=== PATIENT | female | born 1980 | race Caucasian/White ===

== ENCOUNTER 2016-04-06 10:51 | Emergency (ER) | payer OTHER ==
[~2016-04-06 10:51] MED LIST: HYDR7.5T32 PO
[2016-04-06 11:50] LABS: BACTERIA, URINE MOD /hpf; BLOOD, URINE MOD (NEG); COMMENT (UR) CULTURE INDICATED; CULTURE IF INDICATED CULTURE INDICATED; GLUCOSE,URINE NEG (NEG); KETONE, URINE NEG (NEG); MUCUS URINE FEW /lpf (OCC); NITRITE,URINE NEG (NEG); SQUAMOUS EPITHELIAL CELL URINE 1 /hpf (0-5); URINE COLOR YELLOW (YELLW/STRAW)
--- NOTE | 2016-04-06 12:12 | PD ---
HPI Travel History International Travel<30 Days: No Contact w/Intl Traveler<30Days: No Known Affected Area: No History of Present Illness HPI This patient is a 35-year-old 1 para 0 EDC is April 12, 2016 present at 39 weeks and 1 day she presents the chief complaint of of brownish discharge and cramping she presents to see if she is in early labor no flower vaginal bleeding pain scale is about a 1-2 the baby is very active no rupture of membranes care with Dr. Romeo course is significant for a history of an elevated one-hour glucose tolerance test however the three-hour GTT was normal her group B strep is negative and she only had one episode where her blood pressure was elevated. History Past Medical History Narrative Medical Patient is allergic to amoxicillin no major medical problems Obstetric History Obstetric History First Past Surgical History Narrative Surgical Bartholin's cyst removed from the vaginal area history of HPV Family History Narrative Family History History of diabetes fibromyalgia pulmonary embolism Social History Alcohol Use: No Tobacco Use: No Substance Abuse: No Allergies-Medications (Allergen,Severity, Reaction): Coded Allergies: Amoxicillin (Unverified Allergy, Unknown, UNSURE OF REACTION A CHILD, 12/30/11) Home Meds Reported Medications Hydrocodone-Acetaminophen (Hydrocodone/Acetaminophen 7.5/650)1 Tab Tab1 Tab PO Q4-6HPRN 12/30/11 Review of Systems Gastrointestinal: Abdominal Pain (crampy lower abdominal pain) Genitourinary: Other (brownish vaginal discharge) Physical Exam Narrative GENERAL: Well-nourished, well-developed patient. Alert oriented 3 and cooperative in no acute distress SKIN: Warm and dry. HEAD: Normocephalic and atraumatic. EYES: No scleral icterus. No injection or drainage. Conjunctiva are pink ENT: No nasal drainage noted. Mucous membranes pink. Airway patent. Mucous membranes are moist NECK: Supple, trachea midline. No JVD. CARDIOVASCULAR: Regular rate and rhythm without murmurs, gallops, or rubs. RESPIRATORY: Breath sounds equal bilaterally. No accessory muscle use. ABDOMEN/GI: Gravid consistent with term gestation mild palpable contractions Gravid to [-] weeks size term Fundal Height: [-] GENITOURINARY: External Genitalia: intact and normal in appearance BUS glands: [-] Cervix: [-] Mid position Dilatation: [-] Closed Effacement: [-] 0 Station: [-] -2 Presentation: [-] Vertex Membranes: [intact Uterine Contractions: [-] Irregular every 4-6 minutes measuring 1-2 on a 10 scale FHT's: Category: [-] 1 Baseline: [-]140 Reactive: [-] + Variability: [-] Moderate Decels: [-] 0 EXTREMITIES: No cyanosis or edema. 2+ reflexes NEUROLOGICAL: Awake and alert. Motor and sensory grossly within normal limits. Five out of 5 muscle strength in all muscle groups. Normal speech. Data Data Vital Signs Reviewed: Yes (blood pressures 129/82 pulse is 87 she is afebrile) Orders Urinalysis - C+S If Indicated (04/06/16 11:34) Urine Culture (04/06/16 11:00) Labs Laboratory Tests Test 04/06/16 11:00 Urine Color YELLOW Urine Turbidity HAZY Urine pH 6.0 Urine Specific [place] 1.016 Urine Protein NEG Urine Glucose (UA) NEG Urine Ketones NEG Urine Occult Blood MOD Urine Nitrite NEG Urine Bilirubin NEG Urine Urobilinogen LESS THAN 2.0 Urine Leukocyte Esterase NEG Urine RBC 1 Urine WBC 3 Urine Squamous Epithelial 1 Cells Urine Bacteria MOD Urine Mucus FEW Microscopic Urinalysis Comment CULTURE INDICATED Date/Time Procedure Status Source Growth 04/06/16 11:00 Urine Culture Received Urine Clean Catch Pending MDM Medical Record Reviewed: No Interpretation(s) 35-year-old at 39 weeks and 1 day [place] versus early latent phase History of an elevated one-hour glucose tolerance test three-hour test is normal GBS is negative Category 1 tracing Plan Patient has been monitored with category 1 tracing Urine with moderate amount of blood states that culture is indicated however patient had a brownish discharge possible bloody show Will have Dr. Romeo's office follow-up the urine culture for possible treatment Diagnosis Diagnosis: Primary Impression: Irregular uterine contractions Additional Impression: with 39 completed weeks gestation Disposition: 01 DISCHARGE HOME Condition: Stable Melanie Castelan MD Apr 06, 2016 12:11
[2016-04-07] MEDS ORDERED: CALNTAB (04:30)
== END 2016-04-06 12:14 | disposition home or self-care (01) ==
LOC: HOBED 10:51
DX: O62.2 Other uterine inertia (principal); N89.8 Other specified noninflammatory disorders of vagina; Z3A.39 39 weeks gestation of pregnancy; R82.90 Unspecified abnormal findings in urine
CPT/HCPCS: 81001; 87086; 99284

== ENCOUNTER 2016-04-07 02:45 | Inpatient (IN) | payer OTHER ==
[~2016-04-07] VITALS: Ht 170.2 cm; Wt 89.8 kg
[2016-04-07] VITALS (201 sets, daily range): BP systolic 85–138; BP diastolic 46–109; PULSE 67–112; RESP 16–20; TEMP 98–98.9
--- NOTE | 2016-04-07 03:50 | PD ---
HPI Travel History International Travel<30 Days: No Contact w/Intl Traveler<30Days: No Known Affected Area: No History of Present Illness HPI This patient is a 35-year-old 1 para 0 EDC is April 12, 2016 present at 39 weeks and 2 day she presents the chief complaint of of brownish discharge and cramping she presents to see if she is in early labor no flower vaginal bleeding pain scale is about a 1-2 the baby is very active no rupture of membranes care with Dr. Romeo course is significant for a history of an elevated one-hour glucose tolerance test however the three-hour GTT was normal her group B strep is negative and she only had one episode where her blood pressure was elevated. History Past Medical History Narrative Medical Patient is allergic to amoxicillin no major medical problems Obstetric History Obstetric History First Past Surgical History Narrative Surgical Bartholin's cyst removed from the vaginal area history of HPV Family History Narrative Family History History of diabetes fibromyalgia pulmonary embolism Social History Alcohol Use: No Tobacco Use: No Substance Abuse: No Allergies-Medications (Allergen,Severity, Reaction): Coded Allergies: Amoxicillin (Unverified Allergy, Unknown, UNSURE OF REACTION A CHILD, 12/30/11) Home Meds Reported Medications Hydrocodone-Acetaminophen (Hydrocodone/Acetaminophen 7.5/650)1 Tab Tab1 Tab PO Q4-6HPRN 12/30/11 Review of Systems Gastrointestinal: Abdominal Pain (contractions) Physical Exam Narrative GENERAL: Well-nourished, well-developed patient. Alert oriented 3 and cooperative in no acute distress SKIN: Warm and dry. HEAD: Normocephalic and atraumatic. EYES: No scleral icterus. No injection or drainage. Conjunctiva are pink ENT: No nasal drainage noted. Mucous membranes pink. Airway patent. Mucous membranes are moist NECK: Supple, trachea midline. No JVD. CARDIOVASCULAR: Regular rate and rhythm without murmurs, gallops, or rubs. RESPIRATORY: Breath sounds equal bilaterally. No accessory muscle use. ABDOMEN/GI: Gravid consistent with term gestation mild palpable contractions Gravid to [-] weeks size term Fundal Height: [-] GENITOURINARY: External Genitalia: intact and normal in appearance BUS glands: [-] Cervix: [-] Mid position Dilatation: [-] 2cm Effacement: [-] 100% Station: [-] -1 Presentation: [-] Vertex Membranes: [intact Uterine Contractions: [-] Irregular every 2-3 minutes FHT's: Category: [-] 1 Baseline: [-]140 Reactive: [-] + Variability: [-] Moderate Decels: [-] 0 EXTREMITIES: No cyanosis or edema. 2+ reflexes NEUROLOGICAL: Awake and alert. Motor and sensory grossly within normal limits. Five out of 5 muscle strength in all muscle groups. Normal speech. Data Data Labs Vitals: BP 127/79 MDM Medical Record Reviewed: Yes Interpretation(s) 35-year-old 1 para 0 at 39 weeks and 2 days Latent phase labor Group B strep is negative Plan Admit External monitoring IV fluid hydration CBC type and screen Notify Dr. Church Anticipate vaginal delivery Pain management Physician Communication Spoke with Dr. Church he is aware of patient's admission and agrees with evaluation and management Melanie Castelan MD Apr 07, 2016 03:50
[2016-04-07] MEDS ORDERED: LACTATED RINGER'S 1000 ML INJ 1,000 ML IV PRN (03:53)
--- NOTE | 2016-04-07 03:53 | HHI.HP ---
History & Physical H&P HPI Travel History International Travel<30 Days: No Contact w/Intl Traveler<30Days: No Known Affected Area: No History of Present Illness HPI This patient is a 35-year-old 1 para 0 EDC is April 12, 2016 present at 39 weeks and 2 day she presents the chief complaint of of brownish discharge and cramping she presents to see if she is in early labor no flower vaginal bleeding pain scale is about a 1-2 the baby is very active no rupture of membranes care with Dr. Romeo course is significant for a history of an elevated one-hour glucose tolerance test however the three-hour GTT was normal her group B strep is negative and she only had one episode where her blood pressure was elevated. History (Limited) History Past Medical History Narrative Medical Patient is allergic to amoxicillin no major medical problems Obstetric History Obstetric History First Past Surgical History Narrative Surgical Bartholin's cyst removed from the vaginal area history of HPV Family History Narrative Family History History of diabetes fibromyalgia pulmonary embolism Social History Alcohol Use: No Tobacco Use: No Substance Abuse: No Allergies-Medications Allergies-Medications (Allergen,Severity, Reaction): Coded Allergies: Amoxicillin (Unverified Allergy, Unknown, UNSURE OF REACTION A CHILD, 12/30/11) Home Meds Reported Medications Hydrocodone-Acetaminophen (Hydrocodone/Acetaminophen 7.5/650)1 Tab Tab1 Tab PO Q4-6HPRN 12/30/11 ROS Review of Systems Gastrointestinal: Abdominal Pain (contractions) Physical Exam Physical Exam Narrative GENERAL: Well-nourished, well-developed patient. Alert oriented 3 and cooperative in no acute distress SKIN: Warm and dry. HEAD: Normocephalic and atraumatic. EYES: No scleral icterus. No injection or drainage. Conjunctiva are pink ENT: No nasal drainage noted. Mucous membranes pink. Airway patent. Mucous membranes are moist NECK: Supple, trachea midline. No JVD. CARDIOVASCULAR: Regular rate and rhythm without murmurs, gallops, or rubs. RESPIRATORY: Breath sounds equal bilaterally. No accessory muscle use. ABDOMEN/GI: Gravid consistent with term gestation mild palpable contractions Gravid to [-] weeks size term Fundal Height: [-] GENITOURINARY: External Genitalia: intact and normal in appearance BUS glands: [-] Cervix: [-] Mid position Dilatation: [-] 2cm Effacement: [-] 100% Station: [-] -1 Presentation: [-] Vertex Membranes: [intact Uterine Contractions: [-] Irregular every 2-3 minutes FHT's: Category: [-] 1 Baseline: [-]140 Reactive: [-] + Variability: [-] Moderate Decels: [-] 0 EXTREMITIES: No cyanosis or edema. 2+ reflexes NEUROLOGICAL: Awake and alert. Motor and sensory grossly within normal limits. Five out of 5 muscle strength in all muscle groups. Normal speech. Data Data Data Labs Vitals: BP 127/79 MDM MDM Medical Record Reviewed: Yes Interpretation(s) 35-year-old 1 para 0 at 39 weeks and 2 days Latent phase labor Group B strep is negative Plan Admit External monitoring IV fluid hydration CBC type and screen Notify Dr. Church Anticipate vaginal delivery Pain management Physician Communication Spoke with Dr. Church he is aware of patient's admission and agrees with evaluation and management Melanie Castelan MD Apr 07, 2016 03:50 Melanie Castelan MD Apr 07, 2016 03:53
[2016-04-07] MEDS ORDERED: LIDOCAINE HCL 1% 50 ML VIAL INFIL PRN (04:00)
[2016-04-07] MEDS ORDERED: OXYTOCIN 30 UNITS-500ML PREMIX 500 ML IV ONE (04:00)
[2016-04-07] MEDS ORDERED: ONDANSETRON HCL 4 MG/2 ML VIAL IV PRN (04:00)
[2016-04-07] MEDS ORDERED: CITRIC ACID-SODIUM CITRATE LIQ 30 ML UDC PO SCH (04:00)
[2016-04-07] MEDS ORDERED: MINERAL OIL 10 ML VIAL TOPICAL PRN (04:00)
[2016-04-07] MEDS ORDERED: LIDOCAINE HCL 1% 50 ML VIAL I-DERMAL PRN (04:00)
[2016-04-07] MEDS ORDERED: SODIUM CHLORID 0.9% 500 ML INJ 500 ML IV PRN (04:00)
[2016-04-07] MEDS ORDERED: SODIUM CHLOR 0.9% 1000 ML INJ 1,000 ML IV PRN (04:13)
[2016-04-07] MEDS ORDERED: CALNTAB (04:30)
[2016-04-07 04:42] LABS: AUTOMATED NEUTROPHIL # 10.5 TH/MM3 (1.8-7.7); BASOPHIL % 0.2 % (0.0-2.0); EOSINOPHIL % 0.3 % (0.0-4.0); HEMO FLAGS DIFF FINAL; LYMPH % 13.3 % (9.0-44.0); LYMPHOCYTE # 1.8 TH/MM3 (1.0-4.8); MEAN CORPUSCULAR HEMOGLOBIN 28.8 PG (27.0-34.0); MEAN CORPUSCULAR HGB CONC 34.3 % (32.0-36.0); MONO % 6.6 % (0.0-8.0); NEUT % 79.6 % (16.0-70.0); PLATELET COUNT 220 TH/MM3 (150-450); RED BLOOD COUNT 4.41 MIL/MM3 (4.00-5.30); RED CELL DISTRIBUTION WIDTH 14.1 % (11.6-17.2); WHITE BLOOD COUNT 13.2 TH/MM3 (4.0-11.0)
[2016-04-07 04:50] LABS: BACTERIA, URINE RARE /hpf; BLOOD, URINE SMALL (NEG); GLUCOSE,URINE NEG (NEG); KETONE, URINE 10 mg/dL (NEG); MUCUS URINE FEW /lpf (OCC); NITRITE,URINE NEG (NEG); PH, URINE 6.5 (5.0-8.5); SQUAMOUS EPITHELIAL CELL URINE <1 /hpf (0-5); URINE COLOR YELLOW (YELLW/STRAW)
[2016-04-07 04:52] LABS: COMMENT (UR) CULT NOT INDICATED; CULTURE IF INDICATED CULT NOT INDICATED
[2016-04-07] MEDS ORDERED: OXYTOCIN 30 UNITS-500ML PREMIX 500 ML IV SCH (09:15)
--- NOTE | 2016-04-07 09:54 | PD.LABORPN ---
Subjective Subjective pt in discomfort from contractions. initially had not wanted epidural. Objective Vital Signs Vital Signs Date Time Temp Pulse Resp B/P Pulse Ox O2 Delivery O2 Flow Rate FiO2 04/07/16 09:20 77 04/07/16 09:10 76 04/07/16 09:05 81 04/07/16 09:00 81 04/07/16 08:55 79 04/07/16 08:50 82 04/07/16 08:45 88 04/07/16 08:40 76 04/07/16 08:35 77 04/07/16 08:33 78 118/55 04/07/16 08:30 96 04/07/16 08:25 89 04/07/16 08:24 16 04/07/16 08:20 77 04/07/16 08:15 76 04/07/16 08:00 98.5 16 04/07/16 07:55 87 04/07/16 07:50 78 04/07/16 07:45 83 04/07/16 07:40 84 04/07/16 07:35 84 04/07/16 07:30 83 04/07/16 07:26 16 04/07/16 07:25 85 109/86 04/07/16 07:25 87 04/07/16 07:20 87 04/07/16 07:15 85 04/07/16 07:00 16 04/07/16 06:55 90 04/07/16 06:50 84 04/07/16 06:45 99 04/07/16 06:05 75 04/07/16 06:00 77 04/07/16 05:55 77 04/07/16 05:50 80 04/07/16 05:40 90 04/07/16 05:35 73 04/07/16 05:30 70 04/07/16 05:25 74 04/07/16 05:20 92 04/07/16 05:15 81 04/07/16 05:10 75 04/07/16 05:05 76 04/07/16 05:00 81 04/07/16 04:55 85 04/07/16 04:50 89 04/07/16 04:45 91 04/07/16 04:40 82 04/07/16 04:35 77 04/07/16 04:30 79 04/07/16 04:25 84 04/07/16 04:20 86 04/07/16 04:15 84 04/07/16 04:10 80 04/07/16 04:05 86 Objective Pelvic Exam: Cervix: 50/-2 Presentation: ceph Membranes: [intact Uterine Contractions: q3-5 FHT's: Category:I Baseline: 140 Reactive: y Variability: mod Decels: [-] Assessment/Plan Problem List: (1) with 39 completed weeks gestation (2) Irregular uterine contractions (3) Abnormal glucose tolerance affecting , antepartum Assessment and Plan 35 yo G1 at 39w2d admitted in latent labor 1) iol- will start pitocin, unable to arom as cervix very posterior and pt highly intolerant of exam, narrow pelvis 2) Abn 1 hr, nl 3 hr 3) fetus cephalic, Cat I Liz Koenig MD Apr 07, 2016 09:54
[2016-04-07] MEDS ORDERED: fentaNYL 2MCG-BUPIV 0.125% INJ 100 ML ONE ×2 (09:59→16:46)
[2016-04-07] MEDS ORDERED: ePHEDrine/NS 25 MG/5 ML SYR ONE (10:01)
[2016-04-07] MEDS: LACTATED RINGER'S 1000 ML INJ 1,000 ML IV SCH ×3 (11:10→18:03)
[2016-04-07] MEDS ORDERED: MEASLES, MUMPS, RUBELLA VACCINE 0.5 ML VIAL SQ ONE (16:00)
[2016-04-07] MEDS ORDERED: DIPHTH/TETANUS/ACEL PERTUSSIS (BOOSTER) 0.5 ML VIAL/PFS IM ONE (16:00)
--- NOTE | 2016-04-07 20:18 | PD.LABORPN ---
Subjective Subjective feeling pressure Objective Vital Signs Vital Signs Date Time Temp Pulse Resp B/P Pulse Ox O2 Delivery O2 Flow Rate FiO2 04/07/16 19:35 89 18 04/07/16 19:30 96 122/75 04/07/16 19:30 92 04/07/16 19:04 98.9 18 04/07/16 19:01 84 124/68 04/07/16 19:00 88 04/07/16 18:39 98.2 18 04/07/16 18:35 93 04/07/16 18:30 86 04/07/16 18:30 87 118/74 04/07/16 18:25 89 04/07/16 18:20 92 04/07/16 18:15 79 04/07/16 18:00 89 04/07/16 18:00 88 104/71 04/07/16 17:55 85 04/07/16 17:50 84 04/07/16 17:45 83 04/07/16 17:40 90 04/07/16 17:35 87 04/07/16 17:30 95 113/73 04/07/16 17:30 83 04/07/16 17:25 95 04/07/16 17:20 77 04/07/16 17:15 79 04/07/16 17:15 18 04/07/16 17:10 88 04/07/16 17:05 82 04/07/16 17:00 83 04/07/16 17:00 82 111/73 04/07/16 16:57 82 106/71 04/07/16 16:55 85 04/07/16 16:50 84 04/07/16 16:45 94 04/07/16 16:40 89 04/07/16 16:35 86 04/07/16 16:30 97 04/07/16 16:30 88 106/61 04/07/16 16:25 90 04/07/16 16:20 93 04/07/16 16:17 100 111/64 04/07/16 16:15 98.6 04/07/16 16:15 78 04/07/16 16:15 18 04/07/16 16:10 78 04/07/16 16:05 87 04/07/16 16:00 88 106/62 04/07/16 16:00 88 04/07/16 15:55 92 04/07/16 15:50 105 04/07/16 15:45 93 04/07/16 15:40 92 04/07/16 15:35 90 04/07/16 15:30 86 04/07/16 15:30 86 97/55 04/07/16 15:25 92 04/07/16 15:20 89 04/07/16 15:15 81 04/07/16 15:12 18 04/07/16 15:10 91 04/07/16 15:05 86 04/07/16 15:00 89 04/07/16 15:00 90 104/67 04/07/16 14:40 85 04/07/16 14:35 95 04/07/16 14:30 78 102/68 04/07/16 14:30 81 04/07/16 14:25 87 04/07/16 14:20 84 04/07/16 14:15 90 04/07/16 14:10 85 04/07/16 14:06 99 107/73 04/07/16 14:05 76 04/07/16 14:00 78 04/07/16 14:00 79 102/67 04/07/16 13:55 90 04/07/16 13:50 87 04/07/16 13:45 84 04/07/16 13:40 89 04/07/16 13:36 18 04/07/16 13:35 90 04/07/16 13:34 88 115/71 04/07/16 13:30 86 04/07/16 13:30 87 108/69 04/07/16 13:25 88 04/07/16 13:20 89 04/07/16 13:15 91 04/07/16 13:10 88 04/07/16 13:05 94 04/07/16 13:00 92 04/07/16 13:00 93 111/66 04/07/16 12:58 89 99/48 04/07/16 12:55 79 04/07/16 12:50 87 04/07/16 12:45 88 04/07/16 12:40 83 04/07/16 12:35 82 217 12:30 74 105/56 04/07/16 12:30 87 04/07/16 12:25 76 04/07/16 12:20 76 04/07/16 12:19 98.0 04/07/16 12:17 18 Objective c/c/0 strip category 1 UCs adequate EFW 7 1/2 pelvis clinically adequate Assessment/Plan Problem List: (1) with 39 completed weeks gestation (2) Irregular uterine contractions (3) Abnormal glucose tolerance affecting , antepartum Assessment and Plan term in labor now second stage anticipate Yarely Romeo MD Apr 07, 2016 20:18
--- NOTE | 2016-04-07 20:54 | PD.OB.DELI ---
Anesthesia: Epidural Episiotomy: None Vaginal Delivery: Normal Presentation: Occiput anterior Nuchal Cord: None Delayed cord clamping (45 sec): Yes Infant: Male One Minute : 7 Five Minute : 9 Weight: 7 Care: Suctioned, Spontaneous crying, Responded to stimulation Placenta: Spontaneous delivery Laceration: 2 deg Repair: Susanic Yarely Craig MD Apr 07, 2016 20:54
[2016-04-07] MEDS ORDERED: ZOLPIDEM TARTRATE 5 MG TAB PO PRN (21:00)
[2016-04-07] MEDS ORDERED: ONDANSETRON ODT 4 MG TAB PO PRN (21:00)
[2016-04-07] MEDS ORDERED: SODIUM CHLORIDE 0.9% FLUSH 5 ML FLUSH IV SCH (21:00)
[2016-04-07] MEDS ORDERED: BENZOCAINE 20% TOPICAL SPRAY 60 ML CAN TOPICAL PRN (21:00)
[2016-04-07] MEDS ORDERED: SODIUM CHLORIDE 0.9% FLUSH 5 ML FLUSH IV PRN (21:00)
[2016-04-07] MEDS ORDERED: ALUMINUM/MAGNESIUM/SIMETH 30 ML CUP PO PRN (21:00)
[2016-04-07] MEDS ORDERED: ACETAMINOPHEN 325 MG TAB PO PRN (21:00)
[2016-04-07] MEDS: IBUPROFEN 600 MG TAB PO PRN (21:40)
[2016-04-08] MEDS: DOCUSATE SODIUM 50 MG/SENNA 8.6 MG TAB PO PRN ×2 (02:52→16:50)
[2016-04-08] MEDS: IBUPROFEN 600 MG TAB PO PRN ×4 (03:42→22:49)
[2016-04-08] MEDS ORDERED: KETOROLAC TROMETHAMINE 60 MG/2 ML (IM) VIAL IM ONE (08:00)
--- NOTE | 2016-04-08 08:00 | HHI.OB ---
Subjective Post Day: 1 Remarks very painful perineum moving slowly Objective Vitals/I&O Vital Signs Date Time Temp Pulse Resp B/P Pulse Ox O2 Delivery O2 Flow Rate FiO2 04/07/16 22:29 16 04/07/16 22:15 16 04/07/16 22:15 96 117/68 04/07/16 22:00 102 116/68 04/07/16 21:55 18 04/07/16 21:45 95 125/69 04/07/16 21:35 18 04/07/16 21:30 99 18 114/80 04/07/16 21:15 99 121/70 04/07/16 21:00 87 123/70 04/07/16 21:00 18 04/07/16 20:56 87 115/71 04/07/16 20:45 20 04/07/16 20:40 102 04/07/16 20:35 87 04/07/16 20:30 98.2 04/07/16 20:30 82 109/80 04/07/16 20:30 88 04/07/16 20:30 20 04/07/16 20:25 88 04/07/16 20:20 92 04/07/16 20:15 16 04/07/16 20:15 20 04/07/16 20:15 90 04/07/16 20:10 91 04/07/16 20:05 93 04/07/16 20:01 84 92/60 04/07/16 20:00 97 04/07/16 19:35 89 18 04/07/16 19:30 96 122/75 04/07/16 19:30 92 04/07/16 19:04 98.9 18 04/07/16 19:01 84 124/68 04/07/16 19:00 88 04/07/16 18:39 98.2 18 04/07/16 18:35 93 04/07/16 18:30 86 04/07/16 18:30 87 118/74 04/07/16 18:25 89 04/07/16 18:20 92 04/07/16 18:15 79 04/07/16 18:00 89 04/07/16 18:00 88 104/71 04/07/16 17:55 85 04/07/16 17:50 84 04/07/16 17:45 83 04/07/16 17:40 90 04/07/16 17:35 87 04/07/16 17:30 95 113/73 17 17:30 83 17 17:25 95 04/07/16 17:20 77 04/07/16 17:15 79 04/07/16 17:15 18 04/07/16 17:10 88 04/07/16 17:05 82 04/07/16 17:00 83 04/07/16 17:00 82 111/73 04/07/16 16:57 82 106/71 04/07/16 16:55 85 04/07/16 16:50 84 04/07/16 16:46 18 04/07/16 16:45 94 04/07/16 16:40 89 04/07/16 16:35 86 04/07/16 16:30 97 04/07/16 16:30 88 106/61 04/07/16 16:25 90 04/07/16 16:20 93 04/07/16 16:17 100 111/64 04/07/16 16:15 98.6 04/07/16 16:15 78 04/07/16 16:15 18 04/07/16 16:10 78 04/07/16 16:05 87 04/07/16 16:00 88 106/62 04/07/16 16:00 88 04/07/16 15:55 92 04/07/16 15:50 105 04/07/16 15:45 93 04/07/16 15:40 92 04/07/16 15:35 90 04/07/16 15:30 86 04/07/16 15:30 86 97/55 17 15:25 92 17 15:20 89 04/07/16 15:15 81 04/07/16 15:12 18 04/07/16 15:10 91 04/07/16 15:05 86 04/07/16 15:00 89 04/07/16 15:00 90 104/67 17 14:40 85 17 14:35 95 17 14:30 78 102/68 217 14:30 81 217 14:25 87 04/07/16 14:20 84 04/07/16 14:15 90 04/07/16 14:10 85 04/07/16 14:06 99 107/73 04/07/16 14:05 76 04/07/16 14:00 78 04/07/16 14:00 79 102/67 04/07/16 13:55 90 04/07/16 13:50 87 04/07/16 13:45 84 04/07/16 13:40 89 04/07/16 13:36 18 04/07/16 13:35 90 04/07/16 13:34 88 115/71 04/07/16 13:30 86 04/07/16 13:30 87 108/69 04/07/16 13:25 88 04/07/16 13:20 89 04/07/16 13:15 91 04/07/16 13:10 88 04/07/16 13:05 94 04/07/16 13:00 92 04/07/16 13:00 93 111/66 04/07/16 12:58 89 99/48 04/07/16 12:55 79 04/07/16 12:50 87 04/07/16 12:45 88 04/07/16 12:40 83 04/07/16 12:35 82 04/07/16 12:30 74 105/56 04/07/16 12:30 87 04/07/16 12:25 76 04/07/16 12:20 76 04/07/16 12:19 98.0 04/07/16 12:17 18 04/07/16 12:15 77 04/07/16 12:15 75 98/56 04/07/16 12:15 75 98/56 04/07/16 12:05 75 04/07/16 12:00 88 105/58 04/07/16 12:00 89 04/07/16 12:00 88 105/58 217 11:55 93 04/07/16 11:55 93 04/07/16 11:50 93 17 11:50 86 103/56 2/17 11:50 86 103/56 217 11:50 93 217 11:45 86 103/56 217 11:45 86 103/56 217 11:45 91 04/07/16 11:40 82 3/2/17 11:40 83 98/57 217 11:35 88 217 11:35 86 98/55 217 11:34 84 96/59 217 11:31 85/46 2/17 11:31 73 /2/17 11:30 73 2/17 11:30 89/50 217 11:30 74 04/07/16 11:25 97 04/07/16 11:25 97 04/07/16 11:21 18 17 11:20 86 04/07/16 11:15 82 112/76 04/07/16 11:15 85 04/07/16 11:10 67 04/07/16 11:00 94 100/67 17 11:00 95 17 10:55 94 04/07/16 10:55 98 04/07/16 10:50 95 04/07/16 10:50 96 04/07/16 10:45 85 17 10:45 100 116/66 2/17 10:45 100 17 10:42 18 17 10:40 85 217 10:40 85 217 10:35 85 119/70 17 10:35 79 17 10:35 87 2/17 10:30 89 124/75 217 10:30 86 217 10:30 86 17 10:25 89 217 10:25 87 217 10:25 88 124/73 2/17 10:23 87 119/67 2/17 10:20 85 2/17 10:20 86 2/17 10:16 88 120/79 217 10:15 88 217 10:15 87 217 10:10 90 217 10:10 86 138/109 217 10:10 86 2/17 10:07 82 134/85 217 10:05 87 04/07/16 10:05 92 04/07/16 10:00 77 3/2/17 09:59 18 3/2/17 09:55 87 04/07/16 09:55 87 04/07/16 09:50 84 04/07/16 09:45 92 04/07/16 09:45 92 04/07/16 09:40 91 04/07/16 09:35 112 04/07/16 09:30 88 04/07/16 09:30 18 04/07/16 09:25 83 04/07/16 09:20 77 04/07/16 09:10 76 04/07/16 09:05 81 04/07/16 09:00 81 04/07/16 08:55 79 04/07/16 08:50 82 04/07/16 08:45 88 04/07/16 08:40 76 04/07/16 08:35 77 04/07/16 08:33 78 118/55 04/07/16 08:30 96 04/07/16 08:25 89 04/07/16 08:24 16 04/07/16 08:20 77 04/07/16 08:15 76 04/07/16 08:00 98.5 16 Objective Remarks GENERAL: Well-nourished, well-developed patient. CARDIOVASCULAR: Regular rate and rhythm without murmurs, gallops, or rubs. RESPIRATORY: Breath sounds equal bilaterally. No accessory muscle use. ABDOMEN/GI: Abdomen soft, non-tender. Fundus: Firm, non-tender at umbilicus. GENITOURINARY: Light to moderate bleeding. Has large left labia hematoma Very tense but not expanding about 3 x 4 cm EXTREMITIES: No cyanosis or edema, non-tender, without signs of DVT. Medications and IVs Current Medications Medications (Trade) Dose Ordered Sig/Sheldon Route Start Time Stop Time Status Last Admin (NS Flush) 2 ml BID IV 04/07/16 21:00 (NS Flush) 2 ml UNSCH PRN IV 04/07/16 21:00 (Tylenol) 650 mg Q4H PRN PO 04/07/16 21:00 04/08/16 02:52 (Motrin) 600 mg Q6H PRN PO 04/07/16 21:00 04/08/16 03:42 (Americaine 20% Top Spr) 1 spray Q4H PRN TOPICAL 04/07/16 21:00 (Tucks Pads) 1 applic QID PRN TOPICAL 04/07/16 21:00 (Divina-Colace) 2 tab Q12H PRN PO 04/07/16 21:00 04/08/16 02:52 (Ambien) 5 mg HS PRN PO 04/07/16 21:00 (Mag-Al Plus Susp Liq) 15 ml Q8H PRN PO 04/07/16 21:00 (Zofran Odt) 4 mg Q6H PRN PO 04/07/16 21:00 Assessment/Plan Problem List: (1) with 39 completed weeks gestation (2) Irregular uterine contractions (3) Abnormal glucose tolerance affecting , antepartum Assessment and Plan increase pain meds ice pack to perinum Yarely Romeo MD Apr 08, 2016 08:00
[2016-04-08] MEDS: oxyCODONE/ACETAMINOPHEN 5 MG/325 MG TAB PO PRN ×4 (08:17→22:06)
[2016-04-08] MEDS ORDERED: LIDOCAINE HCL 5% OINT 37 GM TUBE TOPICAL PRN (14:00)
[2016-04-08 20:00] VITALS: BP 115/59; PULSE 84; RESP 18; TEMP 98.4
[2016-04-09] MEDS: oxyCODONE/ACETAMINOPHEN 5 MG/325 MG TAB PO PRN ×3 (03:52→13:58)
[2016-04-09] MEDS: IBUPROFEN 600 MG TAB PO PRN ×2 (04:52→10:56)
[2016-04-09] MEDS: WITCH HAZEL 50%/GLYCERIN 12.5% 40 PAD JAR TOPICAL PRN ×2 (05:40→15:42)
[2016-04-09 08:00] VITALS: BP 133/81; PULSE 78; RESP 18; TEMP 97.6
[2016-04-09] MEDS ORDERED: POLYETHYLENE GLYCOL 17 GM PKG PO SCH (09:00)
--- NOTE | 2016-04-09 09:59 | HHI.OB ---
Subjective Post Day: 1 Remarks Doing better wrt hematoma nipples cracked and sore babu has been circumcised and awaiting bilirubin today mildly dysphoric Objective Vitals/I&O Vital Signs Date Time Temp Pulse Resp B/P Pulse Ox O2 Delivery O2 Flow Rate FiO2 04/08/16 20:00 98.4 04/08/16 20:00 84 18 115/59 Objective Remarks GENERAL: Well-nourished, well-developed patient. CARDIOVASCULAR: Regular rate and rhythm without murmurs, gallops, or rubs. RESPIRATORY: Breath sounds equal bilaterally. No accessory muscle use. ABDOMEN/GI: Abdomen soft, non-tender. Fundus: Firm, non-tender at umbilicus. GENITOURINARY: Light to moderate bleeding. Hematoma now less than half the orginial size EXTREMITIES: No cyanosis or edema, non-tender, without signs of DVT. Medications and IVs Current Medications Medications (Trade) Dose Ordered Sig/Sheldon Route Start Time Stop Time Status Last Admin (NS Flush) 2 ml BID IV 04/07/16 21:00 (NS Flush) 2 ml UNSCH PRN IV 04/07/16 21:00 (Tylenol) 650 mg Q4H PRN PO 04/07/16 21:00 04/08/16 02:52 (Motrin) 600 mg Q6H PRN PO 04/07/16 21:00 04/09/16 04:52 (Americaine 20% Top Spr) 1 spray Q4H PRN TOPICAL 04/07/16 21:00 (Tucks Pads) 1 applic QID PRN TOPICAL 04/07/16 21:00 04/09/16 05:40 (Divina-Colace) 2 tab Q12H PRN PO 04/07/16 21:00 04/08/16 16:50 (Ambien) 5 mg HS PRN PO 04/07/16 21:00 (Mag-Al Plus Susp Liq) 15 ml Q8H PRN PO 04/07/16 21:00 (Zofran Odt) 4 mg Q6H PRN PO 04/07/16 21:00 (Percocet 5-325 Mg) 1 tab Q4H PRN PO 04/08/16 08:00 04/09/16 07:59 (Miralax) 17 gm DAILY PO 04/09/16 09:00 04/09/16 07:59 (Xylocaine 5% Oint) 1 applic Q8H PRN TOPICAL 04/08/16 14:00 04/08/16 13:07 Assessment/Plan Problem List: (1) with 39 completed weeks gestation (2) Irregular uterine contractions (3) Abnormal glucose tolerance affecting , antepartum Assessment and Plan home with lidocaine and percocet and sitz bath lanolin to nipples RTO 1 week to evaluate Yarely Romeo MD Apr 09, 2016 09:59
[2016-04-09] MEDS ORDERED: LIDO5%T TOPICAL (10:02)
[2016-04-09] MEDS ORDERED: OXYC1TAB63 PO (10:02)
--- NOTE | 2016-04-09 10:02 | HHI.DCPOC ---
Discharge Care Plan Report Symptoms to Your Doctor -Temperate above 100.5 degrees -Redness, of incision or excessive or foul smelling drainage -Unusual pain or calf pain -Increased vaginal bleeding -Painful or difficulty urinating -Feelings of extreme sadness or anxiety after 2 weeks Goals to Promote Your Health * To prevent worsening of your condition and complications * To maintain your health at the optimal level Directions to Meet Your Goals Take your medications as prescribed Follow your dietary instruction Follow activity as directed Ensure plenty of rest for recovery Drink fluids for hydration Keep your appointments as scheduled Take your immunizations and boosters as scheduled If your symptoms worsen call your PCP, if no PCP go to Urgent Care Center or Emergency Room Smoking is Dangerous to Your Health. Avoid second hand smoke Call the 24-hour crisis hotline for domestic abuse at Yarely Romeo MD Apr 09, 2016 10:02
== END 2016-04-09 16:10 | disposition home or self-care (01) | DRG 775 ==
LOC: HOBED 02:45 → H2EA 03:58 → H1EA 23:15
PROVIDERS: ADMIT Obstetrics & Gynecology; ATTEND Obstetrics & Gynecology
PROC: 10E0XZZ Delivery of Products of Conception, External Approach (ICD-10-PCS; principal; 2016-04-07)
PROC: 0KQM0ZZ Repair Perineum Muscle, Open Approach (ICD-10-PCS; 2016-04-07)
PROC: 3E0R3CZ (ICD-10-PCS; 2016-04-07)
PROC: 00HU33Z Insertion of Infusion Device into Spinal Canal, Percutaneous Approach (ICD-10-PCS; 2016-04-07)
DX: O70.1 Second degree perineal laceration during delivery (principal); Z37.0 Single live birth; Z3A.39 39 weeks gestation of pregnancy
CPT/HCPCS: 59025; 81001; 85025; 86900; 86901; 99285; J2405; J2590; J3010; J7120